=== PATIENT | male | born 1990 | race Caucasian/White ===

== ENCOUNTER 2016-10-05 02:04 | Emergency (ER) | payer SELFPAY ==
[~2016-10-05] VITALS: Ht 182.9 cm; Wt 86.2 kg
[2016-10-05] MEDS ORDERED: ONDANSETRON HCL/PF 4 MG/2 ML VIAL ONE (02:38)
[2016-10-05] MEDS ORDERED: HYDROMORPHONE 1 MG/1 ML DISP.SYRIN ONE (02:39)
[2016-10-05] MEDS ORDERED: HYDROMORPHONE 1 MG/1 ML DISP.SYRIN IV ONE (03:00)
[2016-10-05] MEDS ORDERED: ONDANSETRON HCL/PF 4 MG/2 ML VIAL IV ONE (03:00)
[2016-10-05] MEDS ORDERED: CEPHALEXIN MONOHYDRATE 500 MG CAPSULE PO ONE ×2 (04:14→05:00)
[2016-10-05] MEDS ORDERED: BUPIVACAINE 0.5 % PF 150 MG/30 ML VIAL IJ ONE (04:30)
[2016-10-05 05:24] VITALS: BP 135/77
== END 2016-10-05 05:25 | disposition home or self-care (01) ==
LOC: ER 02:05
DX: S63.054A Dislocation of other carpometacarpal joint of right hand, initial encounter (principal); W18.39XA Other fall on same level, initial encounter; Y93.89 Activity, other specified; Y92.89 Other specified places as the place of occurrence of the external cause; Y99.8 Other external cause status
CPT/HCPCS: 26670 ×2; 73110; 73130 ×2; 96374; 96375; 99284; A4606; J1170; J2405; Z7610